=== PATIENT | male | born 1975 | race Caucasian/White ===

== ENCOUNTER → 2025-02-20 16:40 | Outpatient (CLI) | payer BC, SELFPAY ==
[2025-02-20 17:05] LABS: Add Manual Diff / Slide Review NO; Basophils Absolute Auto 100 /uL (0-100); Basophils Percent Auto 0.6 % (0-2); Eosinophils Absolute Auto 700 /uL (0-450); Eosinophils Percent Auto 7.9 % (2-4); Hematocrit 43.2 % (41-53); Hemoglobin 14.5 g/dL (13.5-17.5); Lymphocytes Absolute Auto 2500 /uL (1100-4500); Lymphocytes Percent Auto 28.5 % (25-40); Mean Corpuscular HGB Conc 33.6 % (30-36); Mean Corpuscular Volume 83.2 fL (80-100); Monocytes Absolute Auto 700 /uL (0-900); Monocytes Percent Auto 8.2 % (3-14); Neutrophils Absolute Auto 4800 /uL (1500-7000); Neutrophils Percent Auto 54.8 % (50-75); Platelet Count 244 X10^3/uL (150-400); Red Cell Distribution Width 13.1 % (11.6-14.8); White Blood Cell Count 8.8 X10^3/uL (4.5-11.0)
[2025-02-20 17:14] LABS: Hemoglobin A1C% w Est Avg Glu 5.4 % (4.0-6.0)
[2025-02-20 17:20] LABS: Alanine Aminotransferase 22 IU/L (<50); Albumin 4.5 g/dL (3.5-5.0); Albumin Globulin Ratio 1.7 (1.0-2.8); Alkaline Phosphatase 56 U/L (38-126); Aspartate Aminotransferase 26 IU/L (17-59); Bilirubin Total 0.4 mg/dL (0.2-1.3); Blood Urea Nitrogen 20 mg/dL (9-20); Calcium 9.4 mg/dL (8.4-10.2); Carbon Dioxide 30 mmol/L (22-32); Chloride 103 mmol/L (98-107); Cholesterol 219 mg/dL (140-199); Estimated Glomerular Filt Rate > 60 mL/min (>60); Globulin 2.6 g/dL (1.7-4.1); Glucose 74 mg/dL (70-100); HDL Cholesterol 33 mg/dL (40-60); HEMOLYSIS 16 (0-50); LDL Cholesterol Calculated 131 mg/dL (<100); Potassium 4.4 mmol/L (3.4-5.1); Sodium 139 mmol/L (137-145); Total Protein 7.1 g/dL (6.3-8.2); Triglycerides 273 mg/dL (35-150)
== END ==
LOC: LAB 16:42
PROVIDERS: PCP Nurse Practitioner Family; Referring Provider Nurse Practitioner Family; Visit Provider Nurse Practitioner Family
DX: Z00.00 Encounter for general adult medical examination without abnormal findings (principal); Z13.220 Encounter for screening for lipoid disorders; R73.03 Prediabetes
CPT/HCPCS: 36415; 80053; 80061; 83036; 85025

== ENCOUNTER 2025-04-08 19:06 | Emergency (ER) | payer BC, SELFPAY ==
[2025-04-08 19:22] VITALS: BP 134/62; PULSE 78; RESP 16; TEMP 36.5; O2SAT 99; BMI 30.2
--- NOTE | 2025-04-08 19:28 | DI.RAD.S_ITS ---
PROCEDURE: XR HAND RT MIN 3V INDICATIONS: dog bite, pain TECHNIQUE: 3 views of the hand(s) acquired. COMPARISON: None. FINDINGS: Bones: No fractures or dislocations. Carpal bones are normally aligned. No suspicious bony lesions. Soft tissues: Dorsal right hand soft tissue laceration is seen. No radiopaque foreign body is noted. IMPRESSION: No acute right hand fracture or dislocation. Dorsal right hand soft tissue laceration. No radiopaque foreign bodies. Dictated by: Cameron Riley M.D. on 04/08/2025 at 20:10 Approved by: Cameron Riley M.D. on 04/08/2025 at 20:11
--- NOTE | 2025-04-09 03:01 | ED.ANIMALBIT ---
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 Some scratches to the webspace on the right hand. His own dogs were fighting and he was trying to break them up when he sustained the wounds. His dogs are up-to-date on all vaccinations. He is up-to-date on tetanus he is noticing some swelling and discomfort in using his right hand and 1st finger. He is deaf and uses sign language which poses another degree of difficulty given the pain that he is experiencing. He declines any pain medication at this time Related Data Previous Rx's Medication Instructions Recorded amoxicillin 875 mg-potassium 1 tab PO BID #20 tabs 04/09/25 clavulanate 125 mg tablet Allergies Allergy/AdvReac Type Severity Reaction Status Date / Time cephalexin AdvReac Severe Rash Verified 04/08/25 19:22 Review of Systems Review of Systems Narrative: Pertinent positive and negative findings as per HPI Patient History Medical History History of prediabetes Hyperlipidemia Hearing loss Exam Initial Vital Signs Initial Vital Signs: Vital Signs Temperature 97.7 F 04/08/25 19:22 Pulse Rate 78 04/08/25 19:22 Respiratory Rate 16 04/08/25 19:22 Blood Pressure 134/62 04/08/25 19:22 Pulse Oximetry 99 04/08/25 19:22 Oxygen Delivery Method Room Air 04/08/25 19:22 General: Alert appropriate in no acute distress Respiratory: Able to speak in full sentences, no obvious respiratory distress Skin: No obvious rashes, warm and dry Neurologic: Grossly intact no obvious asymmetries or abnormalities Psych: appropriate insight and affect, cooperative Right hand has a small puncture wound on the palmar and dorsal surface of the thumb. Some minor scratches to the webspace, left hand with some minor scratches on the dorsum of the hand. None of these wounds need any type of repair. He has cleaned them currently prior to arrival. There is swelling to the right thumb and 1st finger without significant redness. he is neurovascularly intact on the right side Course Orders Ordered: ED Orders 04/08/25 19:28 XR hand RT min 3V Stat Vital Signs Vital signs: Vital Signs - 8 hr 04/08/25 19:22 Temperature 97.7 F Pulse Rate 78 Respiratory Rate 16 Blood Pressure 134/62 Pulse Oximetry 99 Oxygen Delivery Method Room Air MDM - Animal Bite MDM Narrative Medical decision making narrative: 50-year-old gentleman his dogs while they were having a fight and 1 bit his hand he has small puncture wounds on either side of his thumb on the right side with some swelling to the thumb webspace and 1st finger on the right hand. He is otherwise neurovascularly intact. the wounds has been thoroughly cleaned, suturing them is not going to be appropriate nor required. He is given his 1st dose of Augmentin in the emergency department. We discussed wound care and reasons for return to the emergency department. 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 x-rays of the hand are normal today, no underlying bony abnormality. There was no indication for further workup or imaging at this time and he is safe for discharge Discharge Plan Departure Patient Disposition: Home Clinical Impression: Dog bite Qualifiers: Encounter type: initial encounter Qualified Code(s): W54.0XXA - Bitten by dog, initial encounter Instructions: DI for Dog Bite Activity Restrictions/Additional Instructions: thank you for coming in today the wounds on your thumb are deep enough that I would like you to be on antibiotics for 7 days. Animal bites can get infected fairly easily. with this swelling to the thumb and the 1st finger on your hand, this may worsen over the next day or so but should improve. I would recommend antibiotic ointment and a Band-Aid over the puncture wounds as well as the minor abrasions for the 1st couple of days. A prescription for Augmentin has been electronically sent to [facility] in [place] with your 1st dose given in the emergency room this evening using 400 mg of ibuprofen (2 [id number] pills) and 1 Tylenol every 6 hours can be very helpful in controlling pain. If you find that you are getting worse or develop any new symptoms, please feel free to return to the emergency department for further evaluation. Prescriptions: New amoxicillin-pot clavulanate 875-125 mg tablet 1 tab PO BID Qty: 20 0RF Referrals: Shonda Pemberton, PHOTOGRAPHIC EQUIPMENT INSPECTOR[employer] [Primary Care Provider] - Stand Alone Forms: Patient Portal/API/Survey, Work Release Note
[2025-04-09] MEDS: BACITRACIN OINT 0.9 GM PCKT 1 APPLIC TOP (03:17)
[2025-04-09] MEDS: AMOXICILLIN/CLAV 875/125 MG 1 TAB PO (03:17)
== END 2025-04-09 03:38 | disposition home or self-care (01) ==
PROVIDERS: Emergency Provider Emergency Medicine; PCP Nurse Practitioner Family
DX: S61.451A Open bite of right hand, initial encounter (principal); W54.0XXA Bitten by dog, initial encounter
CPT/HCPCS: 73130; 99283

== ENCOUNTER → 2025-05-05 13:09 | Outpatient (CLI) | payer BC, SELFPAY ==
[2025-05-05 15:49] LABS: Influenza A - CEPHEID Flu A NEGATIVE (NEGATIVE); Influenza B - CEPHEID Flu B NEGATIVE (NEGATIVE); Respiratory Syncytial Virus Negative (Negative)
[2025-05-05 15:50] LABS: COVID-19 CEPHEID 4-PLEX PCR POSITIVE (Negative)
== END ==
PROVIDERS: PCP Nurse Practitioner Family; Visit Provider Nurse Practitioner Family
DX: J02.9 Acute pharyngitis, unspecified (principal); R05.9 Cough, unspecified
CPT/HCPCS: 0241U; 87070

== ENCOUNTER → 2025-05-16 15:19 | Outpatient (CLI) | payer BC, SELFPAY ==
[2025-05-16 16:49] LABS: TSH w/ Reflex to FT4 1.28 uIU/mL (0.47-4.68)
== END ==
PROVIDERS: PCP Nurse Practitioner Family; Referring Provider Physician Assistant; Visit Provider Physician Assistant
DX: N52.9 Male erectile dysfunction, unspecified (principal); E78.2 Mixed hyperlipidemia; Z87.898 Personal history of other specified conditions; R53.83 Other fatigue
CPT/HCPCS: 36415; 84403; 84443